=== PATIENT | female | born 1975 | race Caucasian/White ===

== ENCOUNTER 2021-01-15 22:26 | Emergency (ER) | payer BC ==
[~2021-01-15 22:26] MED LIST: IBUPROFEN600 MG PO; LORTAB 5-325 M1 EACH PO
[2021-01-15 23:12] LABS: HEMOGLOBIN 13.8 gm/dl (12.3-15.3); RED BLOOD COUNT 4.3 M/UL (4.00-5.10); WHITE BLOOD COUNT 9.3 K/UL (4.5-11.0)
[2021-01-15 23:29] LABS: BUN/CREATININE RATIO 16 (0-10)
== END 2021-01-16 02:59 | disposition home or self-care (01) ==
LOC: ER1 22:26
PROVIDERS: Emergency Medicine
DX: R07.2 Precordial pain (principal); R07.89 Other chest pain; I10 Essential (primary) hypertension
CPT/HCPCS: 71045; 80053; 82550; 82553; 83874; 84484; 85025; 93005; 99285

== ENCOUNTER → 2021-02-22 | Outpatient (CLI) | payer BC | LOC: MAMO 11:25 | DX: Z12.31 Encounter for screening mammogram for malignant neoplasm of breast (principal) | CPT/HCPCS: 77063; 77067 ==

== ENCOUNTER → 2021-03-08 | Outpatient (CLI) | payer BC | LOC: HEART 5 10:00 | DX: R07.9 Chest pain, unspecified (principal) | CPT/HCPCS: 93306 ==

== ENCOUNTER → 2021-06-17 | Outpatient (CLI) | payer BC | LOC: US 13:45 | DX: N64.4 Mastodynia (principal); N63.20 Unspecified lump in the left breast, unspecified quadrant; R22.1 Localized swelling, mass and lump, neck; E04.1 Nontoxic single thyroid nodule | CPT/HCPCS: 76536; 76641-LT ==

== ENCOUNTER → 2021-08-03 | Outpatient (CLI) | payer BC | LOC: MAMO 10:51 | DX: N63.22 Unspecified lump in the left breast, upper inner quadrant (principal); N63.21 Unspecified lump in the left breast, upper outer quadrant; N64.4 Mastodynia; R06.02 Shortness of breath | CPT/HCPCS: 71046; 77065; G0279 ==